=== PATIENT | female | born 1955 | race Caucasian/White ===

== ENCOUNTER 2023-01-24 09:02 | Day surgery (SDC) | payer MEDICARE, BC, OTHER ==
[~2023-01-24] VITALS: Ht 172.7 cm; Wt 112.9 kg
[~2023-01-24 09:02] MED LIST: BIOT10TA2 PO; CHOL100012 PO; DIVA125C6 PO; DIVA500T94 PO; DULO-34 PO; FINA5TAB2 PO; L-ME7.5T8 PO; LECI518C PO; LEVO125T4 PO; MELO15TA28 PO; MIRT1TAB PO; NS 1,000 ML IV ONE; OMEP40CA5 PO; TIMO0.5S42 OP; XALA0.007 OU
[2023-01-24 12:35] VITALS: TEMP 98.2
[2023-01-24 12:57] VITALS: BP 142/68; O2SAT 97
== END 2023-01-24 13:21 | disposition home or self-care (01) ==
LOC: M OPP 09:02
PROVIDERS: ATTEND Internal Medicine Gastroenterology
DX: Z86.010 Personal history of colon polyps (principal); K57.30 Diverticulosis of large intestine without perforation or abscess without bleeding; K64.8 Other hemorrhoids; Z79.1 Long term (current) use of non-steroidal anti-inflammatories (NSAID); Z79.890 Hormone replacement therapy; Z79.899 Other long term (current) drug therapy; Z88.2 Allergy status to sulfonamides; Z88.5 Allergy status to narcotic agent

== ENCOUNTER → 2024-12-23 | Outpatient (REF) ==
[~2024-12-23] MED LIST changes: +DIVA-41 PO; -DIVA500T94 PO; -NS 1,000 ML IV ONE
== END ==
LOC: M LABCFH 13:31
DX: N39.0 Urinary tract infection, site not specified (principal)

== ENCOUNTER → 2025-01-13 | Outpatient (REF) | LOC: M CFLAB 14:36 | DX: R39.9 Unspecified symptoms and signs involving the genitourinary system (principal) ==

== ENCOUNTER → 2025-05-16 | Outpatient (REF) | LOC: M CFLAB 14:20 | DX: Z01.89 Encounter for other specified special examinations (principal) ==